=== PATIENT | female | born 1985 | race Caucasian/White ===

== ENCOUNTER 2023-01-31 08:00 | Inpatient (IN) | payer BC, OTHER ==
[2023-01-31 09:21] VITALS: BMI 73.4
[2023-01-31] MEDS ORDERED: morphine SULFATE/PF 1 MG/2 ML (2cc Syringe - QUVA) ONE (12:31)
[2023-01-31] MEDS ORDERED: PHENYLEPHRINE HCL 10 MG/1 ML SINGLE DOSE VIAL ONE (12:31)
[2023-01-31] MEDS ORDERED: CITRIC ACID/SODIUM CITRATE 30 ML UNIT-DOSE CUP PO ONE (12:41)
[2023-01-31] MEDS ORDERED: ELECTROLYTE-148 SOLN 1,000 ML IV SCH (12:45)
[2023-01-31] MEDS ORDERED: ePHEDrine SULFATE 50 MG/1 ML AMPULE ONE (12:48)
[2023-01-31] MEDS ORDERED: ceFAZolin SODIUM 1 GM VIAL ONE ×2 (13:03)
[2023-01-31] MEDS ORDERED: OXYTOCIN 10 UNITS/ML VIAL ONE ×2 (13:03)
[2023-01-31] MEDS ORDERED: MIDAZOLAM HCL 2 MG/2 ML SINGLE DOSE VIAL ONE (13:18)
[2023-01-31] MEDS ORDERED: ACETAMINOPHEN 325 MG TABLET (FP) PO PRN (13:42)
[2023-01-31] MEDS ORDERED: SIMETHICONE 80 MG TAB.CHEW (FP) PO PRN (13:42)
[2023-01-31] MEDS ORDERED: IBUPROFEN 800 MG/8 ML IJ IVPB PRN (13:43)
[2023-01-31] MEDS ORDERED: ONDANSETRON 4 MG/2 ML VIAL IVPUSH PRN (13:59)
[2023-01-31] MEDS: OXYTOCIN 20 UNITS in 0.9% NS 20 UNIT/1,000 ML INFUS.BAG IV SCH ×2 (14:00→21:16)
[2023-01-31] MEDS: METHYLERGONOVINE MALEATE 0.2 MG/1 ML AMP IM PRN ×2 (14:34→20:47)
[2023-01-31] MEDS ORDERED: CARBOPROST TROMETHAMINE 250 MCG/ML AMPUL IM ONE (16:45)
[2023-02-01] MEDS ORDERED: oxyCODONE HCL 5 MG TABLET PO PRN ×4 (01:42→16:29)
[2023-02-01 07:55] LABS: BASO % 0.4 % (0-2.0); EOS % 0.2 % (0-4.5); MCH 28.6 pg (25.7-33.7); MCHC 34.7 g/dl (32.0-36.0); MEAN CELL VOLUME 82.4 fl (80-96); MEAN PLT VOLUME 8.5 fl (7.5-11.1); MONO % 10.9 % (3.8-10.2); NEUT % 78.5 % (42.8-82.8); PLATELET COUNT 190 10^3/uL (134-434); RBC 2.43 M/mm3 (3.60-5.2); RDW 13.7 % (11.6-15.6)
[2023-02-01 07:56] LABS: HEMOGLOBIN 6.9 GM/dL (10.7-15.3)
[2023-02-01] MEDS ORDERED: LACTATED RINGERS SOLUTION 1,000 ML/1,000 ML INFUS.BAG IV STA (09:21)
[2023-02-01] MEDS ORDERED: PRENATAL VITAMINS W/ FOLIC ACID TABLET (FP) PO SCH (10:00)
[2023-02-01] MEDS ORDERED: ENOXAPARIN NA (PORCINE) 40 MG/0.4 ML DISP.SYRIN SQ SCH (10:00)
[2023-02-01] MEDS ORDERED: FERROUS SO4 325 MG TABLET (FP) PO SCH (10:00)
[2023-02-01] MEDS ORDERED: IBUPROFEN 600 MG TABLET (FP) PO PRN (13:42)
[2023-02-01] MEDS ORDERED: BISACODYL 10 MG SUPP.RECT RC PRN (13:42)
[2023-02-01] MEDS ORDERED: MIDAZOLAM HCL 2 MG/2 ML SINGLE DOSE VIAL ONE (13:57)
[2023-02-01] MEDS ORDERED: KETAMINE HCL 500 MG/10 ML VIAL ONE (14:02)
[2023-02-01] MEDS ORDERED: MISOPROSTOL 200 MCG TABLET ONE (14:16)
[2023-02-01] MEDS ORDERED: ceFAZolin SODIUM 1 GM VIAL IVPB ONE (15:05)
[2023-02-01] MEDS ORDERED: MISOPROSTOL 200 MCG TABLET PO ONE (15:27)
[2023-02-01] MEDS ORDERED: ACETAMINOPHEN INJECTION 100 ML IVPB ONE (15:31)
[2023-02-01] MEDS ORDERED: SUCCINYLCHOLINE CHLORIDE 200 MG/10 ML SYRINGE ONE (16:22)
[2023-02-01] MEDS ORDERED: PROPOFOL 40 ML ONE (16:22)
[2023-02-01] MEDS ORDERED: ELECTROLYTE-148 SOLN 1,000 ML IV SCH (16:29)
[2023-02-01] MEDS ORDERED: OXYTOCIN 20 UNITS in 0.9% NS 20 UNIT/1,000 ML INFUS.BAG IV SCH (16:29)
[2023-02-01] MEDS ORDERED: ONDANSETRON 4 MG/2 ML VIAL IVPUSH PRN (16:29)
[2023-02-01] MEDS ORDERED: ACETAMINOPHEN 325 MG TABLET (FP) PO PRN (16:29)
[2023-02-01 17:10] LABS: BASO % 0.2 % (0-2.0); HEMATOCRIT 19.5 % (32.4-45.2); LYMPH % 5.5 % (8-40); MCH 27.5 pg (25.7-33.7); MCHC 33.8 g/dl (32.0-36.0); MEAN CELL VOLUME 81.6 fl (80-96); MEAN PLT VOLUME 7.8 fl (7.5-11.1); NEUT % 86.3 % (42.8-82.8); PLATELET COUNT 176 10^3/uL (134-434); RBC 2.39 M/mm3 (3.60-5.2); RDW 14.6 % (11.6-15.6); WHITE BLOOD COUNT 12.6 K/mm3 (4.0-10.0)
[2023-02-01 17:23] LABS: HEMOGLOBIN 6.6 GM/dL (10.7-15.3)
[2023-02-01] MEDS ORDERED: METHYLERGONOVINE MALEATE 0.2 MG TABLET (FP) PO SCH (18:00)
[2023-02-01] MEDS: METHYLERGONOVINE MALEATE 0.2 MG TABLET (FP) PO SCH (18:27)
[2023-02-01 19:23] LABS: ACTIVATED PTT 26.2 SECONDS (25.2-36.5); INR 0.99 (0.83-1.09); PROTHROMBIN TIME (PATIENT) 11.5 SEC (9.7-13.0)
[2023-02-01] MEDS: SIMETHICONE 80 MG TAB.CHEW (FP) PO PRN (21:24)
[2023-02-01] MEDS: FERROUS SO4 325 MG TABLET (FP) PO SCH (22:29)
[2023-02-02] MEDS: IBUPROFEN 600 MG TABLET (FP) PO PRN ×2 (00:07→08:58)
[2023-02-02] MEDS: METHYLERGONOVINE MALEATE 0.2 MG TABLET (FP) PO SCH ×4 (01:05→18:07)
[2023-02-02 02:27] LABS: BASO % 0.2 % (0-2.0); HEMATOCRIT 28.7 % (32.4-45.2); HEMOGLOBIN 9.8 GM/dL (10.7-15.3); LYMPH % 7.5 % (8-40); MCH 27.8 pg (25.7-33.7); MCHC 34.3 g/dl (32.0-36.0); MEAN PLT VOLUME 8.1 fl (7.5-11.1); MONO % 8.1 % (3.8-10.2); NEUT % 84.2 % (42.8-82.8); PLATELET COUNT 212 10^3/uL (134-434); RBC 3.55 M/mm3 (3.60-5.2); RDW 14.7 % (11.6-15.6); WHITE BLOOD COUNT 14.8 K/mm3 (4.0-10.0)
[2023-02-02 08:14] LABS: BASO % 0.4 % (0-2.0); EOS % 0.2 % (0-4.5); HEMATOCRIT 28.9 % (32.4-45.2); HEMOGLOBIN 10.2 GM/dL (10.7-15.3); MCH 28.4 pg (25.7-33.7); MCHC 35.5 g/dl (32.0-36.0); MEAN CELL VOLUME 79.9 fl (80-96); MEAN PLT VOLUME 8.2 fl (7.5-11.1); MONO % 7.5 % (3.8-10.2); NEUT % 82.9 % (42.8-82.8); PLATELET COUNT 199 10^3/uL (134-434); RBC 3.61 M/mm3 (3.60-5.2); RDW 14.5 % (11.6-15.6); WHITE BLOOD COUNT 13.8 K/mm3 (4.0-10.0)
[2023-02-02 08:26] LABS: INR 0.96 (0.83-1.09); PROTHROMBIN TIME (PATIENT) 11.1 SEC (9.7-13.0)
[2023-02-02 08:29] LABS: ACTIVATED PTT 25.3 SECONDS (25.2-36.5)
[2023-02-02] MEDS: SIMETHICONE 80 MG TAB.CHEW (FP) PO PRN ×3 (08:57→21:37)
[2023-02-02] MEDS: PRENATAL VITAMINS W/ FOLIC ACID TABLET (FP) PO SCH (08:59)
[2023-02-02] MEDS: FERROUS SO4 325 MG TABLET (FP) PO SCH ×2 (08:59→21:37)
[2023-02-02] MEDS: ENOXAPARIN NA (PORCINE) 40 MG/0.4 ML DISP.SYRIN SQ SCH (08:59)
[2023-02-02] MEDS ORDERED: oxyCODONE HCL 5 MG TABLET PO PRN ×2 (11:10)
[2023-02-02] MEDS ORDERED: METHYLERGONOVINE MALEATE 0.2 MG TABLET (FP) PO SCH (11:11)
[2023-02-02] MEDS: ACETAMINOPHEN 325 MG TABLET (FP) PO SCH ×2 (11:16→18:18)
[2023-02-02] MEDS: IBUPROFEN 600 MG TABLET (FP) PO SCH ×2 (15:55→21:36)
[2023-02-02 16:09] LABS: BASO % 0.2 % (0-2.0); EOS % 0.3 % (0-4.5); HEMATOCRIT 30.1 % (32.4-45.2); HEMOGLOBIN 10.1 GM/dL (10.7-15.3); LYMPH % 12.2 % (8-40); MCH 27.3 pg (25.7-33.7); MCHC 33.5 g/dl (32.0-36.0); MEAN CELL VOLUME 81.2 fl (80-96); MEAN PLT VOLUME 7.9 fl (7.5-11.1); MONO % 8.5 % (3.8-10.2); NEUT % 78.8 % (42.8-82.8); PLATELET COUNT 200 10^3/uL (134-434); RBC 3.71 M/mm3 (3.60-5.2); RDW 15.1 % (11.6-15.6); WHITE BLOOD COUNT 12.8 K/mm3 (4.0-10.0)
[2023-02-02] MEDS: BISACODYL 10 MG SUPP.RECT RC PRN (21:35)
[2023-02-03] MEDS: SIMETHICONE 80 MG TAB.CHEW (FP) PO PRN ×5 (02:46→21:29)
[2023-02-03] MEDS: IBUPROFEN 600 MG TABLET (FP) PO SCH ×5 (02:47→21:29)
[2023-02-03] MEDS: ACETAMINOPHEN 325 MG TABLET (FP) PO SCH (05:34)
[2023-02-03] MEDS: BISACODYL 10 MG SUPP.RECT RC PRN (06:12)
[2023-02-03 07:53] LABS: HEMATOCRIT 26.9 % (32.4-45.2); HEMOGLOBIN 9.4 GM/dL (10.7-15.3); MCH 28.7 pg (25.7-33.7); MCHC 35.1 g/dl (32.0-36.0); MEAN CELL VOLUME 81.8 fl (80-96); MEAN PLT VOLUME 8.1 fl (7.5-11.1); PLATELET COUNT 207 10^3/uL (134-434); RBC 3.28 M/mm3 (3.60-5.2); RDW 15.1 % (11.6-15.6); WHITE BLOOD COUNT 9.7 K/mm3 (4.0-10.0)
[2023-02-03 08:52] LABS: ANISOCYTOSIS 0; HELMET CELLS 0; HOWELL-JOLLY BODIES 0; MACROCYTOSIS 0; OVALOCYTE 0; ROULEAU 0; SICKELED CELLS 0; TARGET CELLS 0; TEAR DROP CELLS 0; TOXIC GRANULATION 0
[2023-02-03] MEDS: ENOXAPARIN NA (PORCINE) 40 MG/0.4 ML DISP.SYRIN SQ SCH (09:24)
[2023-02-03] MEDS: PRENATAL VITAMINS W/ FOLIC ACID TABLET (FP) PO SCH (09:25)
[2023-02-03] MEDS: FERROUS SO4 325 MG TABLET (FP) PO SCH (09:25)
[2023-02-03] MEDS: ACETAMINOPHEN 500 MG TABLET (FP) PO SCH ×3 (11:58→20:37)
[2023-02-03] MEDS: DOCUSATE SODIUM 100 MG CAPSULE (FP) PO SCH ×2 (13:35→21:30)
[2023-02-03] MEDS: IRON SUCROSE INJECTION 200 MG in SODIUM CHLORIDE 90 ML IVPB SCH ×2 (14:01→21:31)
[2023-02-04] MEDS: ACETAMINOPHEN 500 MG TABLET (FP) PO SCH ×2 (02:33→12:16)
[2023-02-04] MEDS: IBUPROFEN 600 MG TABLET (FP) PO SCH ×2 (05:29→10:08)
[2023-02-04] MEDS: DOCUSATE SODIUM 100 MG CAPSULE (FP) PO SCH (05:44)
[2023-02-04] MEDS: SIMETHICONE 80 MG TAB.CHEW (FP) PO PRN ×2 (05:44→10:08)
[2023-02-04 08:50] VITALS: BP 121/70; PULSE 65; RESP 18; TEMP 97.9
[2023-02-04] MEDS: PRENATAL VITAMINS W/ FOLIC ACID TABLET (FP) PO SCH (10:08)
[2023-02-04] MEDS: ENOXAPARIN NA (PORCINE) 40 MG/0.4 ML DISP.SYRIN SQ SCH (10:09)
[2023-02-04] MEDS: IRON SUCROSE INJECTION 200 MG in SODIUM CHLORIDE 90 ML IVPB SCH (10:09)
== END 2023-02-04 13:30 | disposition home or self-care (01) | DRG 787 ==
LOC: JLDR 08:00 → J3W 15:36
PROVIDERS: ADMIT Obstetrics & Gynecology; ATTEND Obstetrics & Gynecology
PROC: 10D00Z1 Extraction of Products of Conception, Low, Open Approach (ICD-10-PCS; 2023-01-31)
PROC: 0W3R7ZZ Control Bleeding in Genitourinary Tract, Via Natural or Artificial Opening (ICD-10-PCS; 2023-02-01)
PROC: 30233N1 Transfusion of Nonautologous Red Blood Cells into Peripheral Vein, Percutaneous Approach (ICD-10-PCS; 2023-02-01)
PROC: 10D17ZZ Extraction of Products of Conception, Retained, Via Natural or Artificial Opening (ICD-10-PCS; principal; 2023-02-01 14:00)
PROC: 30233K1 Transfusion of Nonautologous Frozen Plasma into Peripheral Vein, Percutaneous Approach (ICD-10-PCS; 2023-02-02)
DX: O34.219 Maternal care for unspecified type scar from previous cesarean delivery (principal); D62 Acute posthemorrhagic anemia; O72.1 Other immediate postpartum hemorrhage; Z3A.39 39 weeks gestation of pregnancy; Z37.0 Single live birth
CPT/HCPCS: 36415; 36430; 85025; 85384; 85610; 85730; 86850; 86900; 86901; 86922; 88305-TC; 88307-TC; 94010; 94760; J1756; P9017; P9058

== ENCOUNTER 2023-02-08 17:49 | Emergency (ER) | payer BC, OTHER ==
[2023-02-08 18:16] VITALS: BP 132/82; PULSE 68; RESP 18; TEMP 98.7; BMI 31.2
[2023-02-08 20:59] LABS: BASO % 0.9 % (0-2.0); EOS % 0.9 % (0-4.5); HEMATOCRIT 33.2 % (32.4-45.2); HEMOGLOBIN 11.3 GM/dL (10.7-15.3); LYMPH % 20.1 % (8-40); MCH 28.4 pg (25.7-33.7); MCHC 34.1 g/dl (32.0-36.0); MEAN CELL VOLUME 83.3 fl (80-96); MONO % 8.4 % (3.8-10.2); NEUT % 69.7 % (42.8-82.8); PLATELET COUNT 359 10^3/uL (134-434); RBC 3.99 M/mm3 (3.60-5.2); RDW 15.1 % (11.6-15.6); WHITE BLOOD COUNT 9.6 K/mm3 (4.0-10.0)
[2023-02-08 21:06] LABS: INR 0.96 (0.83-1.09); PROTHROMBIN TIME (PATIENT) 11.1 SEC (9.7-13.0)
[2023-02-08 21:08] LABS: ACTIVATED PTT 31.7 SECONDS (25.2-36.5)
[2023-02-08 21:10] LABS: POTASSIUM 3.5 mmol/L (3.5-5.1)
[2023-02-08 21:12] LABS: CALCIUM 8.4 mg/dL (8.5-10.1)
[2023-02-08 21:13] LABS: BLOOD UREA NITROGEN 9.4 mg/dL (7-18)
[2023-02-08 21:16] LABS: CREATININE 0.6 mg/dL (0.55-1.3)
[2023-02-08 21:17] LABS: BILIRUBIN,TOTAL 0.3 mg/dL (0.2-1); TOT PROT 6.2 g/dl (6.4-8.2)
[2023-02-08] MEDS ORDERED: ENOXAPARIN NA (PORCINE) 120 MG/0.8 ML DISP.SYRIN SQ ONE (21:32)
[2023-02-08] MEDS ORDERED: ENOXAPARIN NA (PORCINE) 80 MG/0.8 ML DISP.SYRIN SQ ONE (21:51)
[2023-02-08 21:55] LABS: ANISOCYTOSIS 1+; PLATELET ESTIMATE ADEQUATE
== END 2023-02-08 22:09 | disposition home or self-care (01) ==
LOC: JER 17:49
PROC: 3E023GC Introduction of Other Therapeutic Substance into Muscle, Percutaneous Approach (ICD-10-PCS; principal; 2023-02-08)
DX: I82.621 Acute embolism and thrombosis of deep veins of right upper extremity (principal); M79.621 Pain in right upper arm; Z20.822 Contact with and (suspected) exposure to COVID-19
CPT/HCPCS: 0241U-QW; 36415; 80053; 85025; 85610; 85730; 93971; 99284-25